=== PATIENT | female | born 1960 | race Caucasian/White ===

== ENCOUNTER 2023-06-15 09:57 | Outpatient (CLI) | payer BC, SELFPAY ==
--- OUTSIDE RECORDS SUMMARY | 2023-06-19 14:49 | XMS_ITS | Patient Health Record ---
Author Name Unknown Organization [facility] Address [address] [place], [place] [id number] Support Name Relationship Address Phone Sapphire Yeh Guarantor Unknown [phone] REASON FOR REFERRAL No Information MEDICATIONS Medication SIG (Take, Route, Frequency, Duration) Notes Start Date End Date Status Multivitamin Adult - as directed Orally Active amLODIPine Besylate 5 MG 1 tablet Orally Once a day for 30 day(s) Active Fexofenadine HCl 180 MG 1 tablet as need ed Orally Once a day for 30 day(s) Not-Taking Garlic 100 MG as directed Orally Active Co Q 10 10 MG 1 capsule with a michel l Orally Once a day for 30 day(s) Active [place] 3 1000 MG 1 capsule Orally Onc e a day for 30 day(s) Active SOCIAL HISTORY Tobacco Use: Social History Observation Description Date Details (start date - stop date) Never Smoker NA - NA Sex Assigned At : Social History Observation Description Sex Assigned At Unknown Tobacco Use/Smoking Question Answer Notes Are you a nonsmoker PROBLEMS Problem Type ICD Code Onset Dates Problem Status W/U Status Risk SNOMED Code Notes Problem Rectocele (N81.6) Active confirmed [id number] PLAN OF TREATMENT No Information Insurance Providers Payer Name Payer Address Payer Phone Subscriber Number Group Number Insured Name Patient Relationship to Insured Coverage Start Date Coverage End Date [facility] [address] [address] [place] [address] [id number] Lionel Yeh Spouse - patient is the spouse of the insured MEDICAL (GENERAL) HISTORY Medical History History ICD Code High Blood Pressure High Cholesterol Blood Clots in Lung 2007 Arthritis Chicken Pox Migraines Surgical History Surgery Date(Month/Year)
== END 2023-06-15 09:58 | disposition home or self-care (01) ==
LOC: AMB 06-19 14:47
PROVIDERS: PCP Family Medicine; Visit Provider Family Medicine
DX: S99.921A Unspecified injury of right foot, initial encounter (principal); W01.0XXA Fall on same level from slipping, tripping and stumbling without subsequent striking against object, initial encounter; Y92.096 Garden or yard of other non-institutional residence as the place of occurrence of the external cause
CPT/HCPCS: A0425; A0427